=== PATIENT | female | born 1990 | race American Indian/Alaskan Native ===

== ENCOUNTER 2018-08-24 17:47 | Outpatient (CLI) | payer OTHER ==
[2018-08-24 18:20] VITALS: BP 107/74
[2018-08-24 18:57] LABS: Bacteria,Urine 1+ /HPF (Negative); Bilirubin,Urine NEG (Negative); Blood,Urine SM (Negative); Color,Urine Yellow (Yellow); Mucus,Urine FEW /HPF; Protein,Urine <15 mg/dL mg/dL (Negative); Urobilinogen,Urine < 2.0 mg/dL (<2.0)
[2018-08-24] MEDS ORDERED: LACTATED RINGERS 1,000 ML IV SCH (19:00)
[2018-08-24] MEDS ORDERED: BRETHINE SUB-Q SCH (21:00)
== END 2018-08-24 21:57 | disposition home or self-care (01) ==
LOC: TRG 17:47
PROVIDERS: ATTEND Obstetrics & Gynecology
DX: O26.893 Other specified pregnancy related conditions, third trimester (principal); R10.30 Lower abdominal pain, unspecified; O47.03 False labor before 37 completed weeks of gestation, third trimester; O09.213 Supervision of pregnancy with history of pre-term labor, third trimester; O13.3 Gestational [pregnancy-induced] hypertension without significant proteinuria, third trimester; O24.419 Gestational diabetes mellitus in pregnancy, unspecified control; Z3A.28 28 weeks gestation of pregnancy
CPT/HCPCS: 59025; 81001; 96360; 96361; 96372; J3105; J7120

== ENCOUNTER 2018-10-21 18:18 | Observation (INO) | payer OTHER ==
--- NOTE | 2018-10-21 19:26 | Event Note ---
Date: 10/21/18 Spec exam shows no pooling of fluid. nitrazine negative. SVE FT/60/-2. Irregular contractions palpating moderate. Cat 1 FHTs, reactive. VSSAF. pt reports being very active today, not hydrating. Will start IV and fluid bolus and recheck SVE in 1-2 hrs.
[2018-10-21] MEDS ORDERED: LACTATED RINGERS 500 ML IV ONE (19:29)
[2018-10-21] MEDS ORDERED: LACTATED RINGERS 1,000 ML ONE (19:30)
[2018-10-21] MEDS ORDERED: TYLENOL PO PRN (22:06)
[2018-10-21] MEDS ORDERED: VISTARIL PO PRN (22:10)
--- NOTE | 2018-10-21 22:22 | History and Physical Report ---
History of Present Illness Date of examination: 10/21/18 Date of admission: 10/21/2018 Chief complaint: contractions History of present illness: Pt reports contractions have been coming and going all day, continually getting stronger and closer since 5 pm today. 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 yes EDC Calculations LMP: 10/16/2019 EDC Confirmation: 11/16/2018 Gestational Age: 8 weeks Past History : 3 Para: 1 Prev : 1 # 1 Delivery date: 2006 Weeks Gestation: 39 Delivery location: [facility] Infant Sex: Female weight: 6-11 Comments: IOL severe preeclampsia. 4th degree laceration # 2 Delivery date: 2010 Weeks Gestation: 39 Delivery location: [place] Sex: Female weight: 8-3 Comments: elective d/t 4th degree laceration, IUGR Past Medical History: Reviewed history from 12/04/2015 and no changes required: Anxiety Past Surgical History: Reviewed history from 12/04/2015 and no changes required: Abdominoplasty Breast Augmentation: Risk Factors: Counseled to quit/cut down: yes Previous Tobacco Use: Signed On 12/04/2015 Smoked Tobacco Use: Never smoker Drug use: no Previous Alcohol Use: Signed On 12/04/2015 Alcohol use: no Exercise: yes Times per week: 6 PAP Smear History: Date of Last PAP Smear: 12/04/2015 Past Medical History Abnormal PAP: negative Social Hx: Patient is Smoking History: Patient has never smoked. Infection History Hx of STD: none Personal hx. of genital herpes: no Partner hx. of genital herpes: no Varicella/Chicken Pox Status: Previous Disease TB Risk: no Genetic History Congenital Heart Defect: Mom: no Dad: no Farhat Disease: Mom: no Dad: no Thalassemia Mom: no Dad: no Neural Tube Defect Mom: no Dad: no Down's Syndrome Mom: no Dad: no Robert-Sachs Mom: no Dad: no Sickle Cell Disease/Trait Mom: no Dad: no Hemophilia Mom: no Dad: no Muscular Dystrophy Mom: no Dad: no Cystic Fibrosis Mom: no Dad: no [place] Chorea Mom: no Dad: no Mental Retardation Mom: no Dad: no Fragile X Mom: no Dad: no Other Genetic/Chromosomal Disorder Mom: no Dad: no Child w/other defect Mom: no Dad: no Enviromental Exposures Enviromental Exposures Reviewed Xray Exposure: no Medication, drug, or alcohol use since LMP: no Chemical/Other Exposure: no Exposure to Cat Liter: no Hx of Parvovirus (Fifth Disease): no Occupational Exposure to Children: none Comments: Ethnicity: Presybeterian: 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) Family/Genetic History: other (see HPI) Social history: other (see HPI) - Obstetrical History : 3 Para: 2 Medications and Allergies Allergies Allergy/AdvReac Type Severity Reaction Status Date / Time No Known Allergies Allergy Verified 08/24/18 18:11 Active Meds: Active Medications Acetaminophen (Tylenol) 650 mg PO Q4H PRN PRN Reason: Pain MILD(1-3)/Fever >100.5/BAY Hydroxyzine Pamoate (Vistaril) 50 mg PO Q6H PRN PRN Reason: Anxiety Lactated Ringer's (Lactated Ringers) 1,000 mls @ 125 mls/hr IV DIRECT CASPER Review of Systems All systems: negative Genitourinary: contractions - Vital Signs Vital signs: Vital Signs Temp Pulse Resp BP 98.0 F 107 H 18 114/71 10/21/18 18:46 10/21/18 18:46 10/21/18 18:46 10/21/18 18:46 Temp Pulse Resp BP Pulse Ox 98.0 F 107 H 18 114/71 10/21/18 18:46 10/21/18 19:43 10/21/18 18:46 10/21/18 19:43 - Physical Exam Breasts: Cardiovascular: Regular rate, Normal S1, Normal S2 Lungs: Positive: Clear to auscultation, Normal air movement Abdomen: Positive: normal appearance, soft, normal bowel sounds. Negative: distention, tenderness Genitourinary (Female): Positive: normal external genitalia, normal perenium Vulva: both: normal Vagina: Positive: normal moisture. Negative: discharge Cervix: Negative: lesion, discharge Uterus: Positive: normal size, normal contour Adnexa: both: normal Anus/Rectum: Positive: normal perianal skin, heme negative. Negative: rectal mass, hemorrhoids Extremities: Positive: normal Deep Tendon Reflex Grade: Normal +2 - Obstetrical FHR: auscultation normal, category 1 Uterine Contraction Monitor Mode: External Cervical Dilatation: 1.5 (unable to reach inner os d/t pt discomfort and anxiety) Cervical Effacement Percentage: 60 station: -2 Uterine Contraction Frequency (min): 3-12 Uterine Contraction Pattern: Irregular Uterine Tone Measurement Phase: Contraction Uterine Contraction Intensity: Moderate Results Result Diagrams: 10/21/18 23:05 All other labs normal. Assessment and Plan Patient reports contractions "felt better and spaced out" with LR bolus, but since completion of bolus, ctx are now "getting stronger and closer again". SVE on arrival was FT/50/-2, now outer os is 1.5/50/-2 although [facility] is changed from prior exam d/t pt severe anxiety with any touch or examinations-pt unable to relax legs and is asking to stop exam, so I complied. Small amount of red blood noted on glove after examination. Contractions are now irregular, q4-12 minutes with irritability noted, still palpating moderate. pt rates pain 6/10 with contractions, 0 between contractions. Resting tone between contractions noted, abdomen is soft and non tender. DWP administration of terbutaline on arrival for comfort measures. She reported "not liking the way that made me feel and my heart racing with my anxiety" last time she received it and declined at the time. She is now accepting to receive the medication, but HR is 114 at current, will continue to monitor vs. Discussed pt c/o and assessment with Dr. Lawson. Will plan to admit for observation at this time, continue IV fluids, vistaril and tylenol ordered. See EMR. GBS is negative. Will continue to monitor for cervical change. Plan to reassess in AM or sooner if warranted. Pt aware to notify providers of any continued VB or any other changes in assessment.
[2018-10-21 22:25] LABS: Bacteria,Urine 1+ /HPF (Negative); Bilirubin,Urine NEG (Negative); Blood,Urine SM (Negative); Color,Urine Straw (Yellow); Protein,Urine <15 mg/dL mg/dL (Negative); Urobilinogen,Urine < 2.0 mg/dL (<2.0); WBC,Urine < 1.0 /HPF (0.0-6.0)
[2018-10-21 23:26] LABS: Basophils % (Auto) 0.3 % (0.0-1.8); Eosinophils # (Auto) 0.1 K/mm3 (0.0-0.4); Eosinophils % (Auto) 0.9 % (0.0-4.3); Hematocrit 34.5 % (30.3-42.9); Lymphocytes # (Auto) 1.4 K/mm3 (1.2-5.4); Lymphocytes % (Auto) 17.2 % (13.4-35.0); Mean Corpuscular HGB Conc 35 % (30-34); Mean Corpuscular Volume 88 fl (79-97); Monocytes # (Auto) 0.7 K/mm3 (0.0-0.8); Monocytes % (Auto) 8.3 % (0.0-7.3); Platelet Count 182 K/mm3 (140-440); Red Blood Count 3.91 M/mm3 (3.65-5.03); Red Cell Distribution Width 13.1 % (13.2-15.2)
--- NOTE | 2018-10-22 04:35 | Event Note ---
Date: 10/22/18 Call from RN approx 0215 to report pt is having irregular "runs of contractions every 3-4 minutes, but periods of longer spaces at times too". She reports patient has received vistaril, says pt reports "they are still painful" but that she is resting and does not appear to be in any distress or discomfort. Will continue to monitor at this time, RN to call within an hour if ctx appear to be progressing. Called RN to check status of pt at 0345, she reports that the contractions have spaced out, patient is resting without complaints. She calls back shortly after to report that patient has called out stating contractions are now very strong and painful again. SVE per RN is 1/50/-3, small amount of brown blood noted on exam glove. Will continue current POC and monitoring.
--- NOTE | 2018-10-22 05:42 | Progress Note ---
Assessment and Plan - Patient Problems (1) 36 weeks gestation of Onset Date: ~10/22/18 Current Visit: Yes Status: Acute Plan to address problem: Pt alert resting C/O being dizzy pt states it started after receiving Vistaril. Also states ctx have decreased in freq and intensity. Cat 1 tracing VSS CTX Q 12-15min with runs of Q5-8, 45sec,mild IUP @ 36w with ctx P: continue IVFs for now When pt is no longer dizzy from medication will allow breakfast and AM care. Will reassess after. Subjective - Subjective Date of service: 10/22/18 (pt resting quietly) Principal diagnosis: IUP@36w3d with ctx Patient reports: movement normal, other (pt c/o being dizzy Pt contributes it to the Vistaril) Objective - Vital Signs Vital Signs: Vital Signs - 12hr 10/21/18 10/21/18 10/21/18 18:46 19:43 22:26 Temperature 98.0 F Pulse Rate 107 H 107 H 110 H Respiratory 18 Rate Blood Pressure 114/71 104/56 Blood Pressure 114/71 [Left] - Exam Breasts: deferred Cardiovascular: Regular rate Lungs: Normal air movement Abdomen: Present: normal appearance, soft. Absent: distention, tenderness Vulva: both: normal Uterus: Present: normal FHR: auscultation normal, category 1 Uterine Contraction Monitor Mode: External Cervical Dilatation: 1 (CN had checked pt @ 0400) Cervical Effacement Percentage: 50 station: -3 Uterine Contraction Pattern: Irregular (pt states ctx have spaced out and are not as strong) Uterine Tone Measurement Phase: Resting Uterine Contraction Intensity: Mild Extremities: normal Deep Tendon Reflex Grade: Normal +2 - Labs Labs: Abnormal Labs 10/21/18 23:05 MCHC 35 H RDW 13.1 L Jefferson % (Auto) 8.3 H Seg Neutrophils % 73.3 H Laboratory Results - last 24 hr 10/21/18 10/21/18 10/21/18 21:25 23:05 23:05 WBC 8.1 RBC 3.91 Hgb 12.0 Hct 34.5 MCV 88 MCH 31 MCHC 35 H RDW 13.1 L Plt Count 182 Lymph % (Auto) 17.2 Jefferson % (Auto) 8.3 H Eos % (Auto) 0.9 Baso % (Auto) 0.3 Lymph # 1.4 Jefferson # 0.7 Eos # 0.1 Baso # 0.0 Seg Neutrophils % 73.3 H Seg Neutrophils # 6.0 Urine Color Straw Urine Turbidity Clear Urine pH 7.0 Ur Specific Smyer 1.003 Urine Protein <15 mg/dl Urine Glucose (UA) Neg Urine Ketones Neg Urine Blood Sm Urine Nitrite Neg Urine Bilirubin Neg Urine Urobilinogen < 2.0 Ur Leukocyte Esterase Neg Urine WBC (Auto) < 1.0 Urine RBC (Auto) 1.0 U Epithel Cells (Auto) 1.0 Urine Bacteria (Auto) 1+ Blood Type A POSITIVE Antibody Screen Negative
[2018-10-22] MEDS: CELESTONE SOLUSPAN IM SCH (09:25)
[2018-10-22] MEDS: TYLENOL PO SCH ×2 (11:00→17:11)
[2018-10-22] MEDS: LACTATED RINGERS 1,000 ML IV SCH (16:30)
--- NOTE | 2018-10-22 18:14 | Event Note ---
<DUANE LANDERS - Last Filed: 10/22/18 18:10> Date: 10/22/18 (Pt sitting on side of bed; "I want to eat.") Ctx continue minimal intensity, irregular. Cat 1 tracing. will go and get dinner for pt. Discussed with pt as long as ctx remain irregular will plan to give second dose of BMZ in the AM and re-eval in the AM. All questions addressed. to be over to see pt. <RAMÍREZ POWERS - Last Filed: 10/22/18 19:18> Patient resting in bed with family present.Still complains of contractions, irregularly. FHT's cat 1, Contractions irregular. Will complete steroid dose and observe, possibly allow home after dose if stable vs proceeding with delivery if labor or any other obstetric indications. Patient voiced understanding and agrees with plan of care
[2018-10-22] MEDS ORDERED: BENADRYL PO NR (21:00)
[2018-10-22] MEDS ORDERED: PEPCID IV SCH (21:00)
[2018-10-23] MEDS: LACTATED RINGERS 1,000 ML IV SCH (00:55)
[2018-10-23 07:43] VITALS: BP 105/69
--- NOTE | 2018-10-23 08:12 | Progress Note ---
Assessment and Plan 36.4 week IUP prior c/s here for ptl and BMZ. Pt resting in bed, reports feeling well, denies any complaints other than "this bed is very uncomfortable and I would like to either go home or have my baby". Patient reports contractions have "dies down". She report feeling none at all throughout the night. Since waking, 1-2 per hour, mild. She denies any VB or LOF. +FM. VSSAF. 2nd dose of BMZ due at 0930. Patient requests SVE not be done again d/t it being very painful and causing more contractions to follow. Last SVE was yesterday at 0400, /3. Will reassess pt status after BMZ given and if she remains stable condition will likely plan to d/c home at that time. Will consult with Dr. Lawson and update RN after BMZ completion. Subjective - Subjective Date of service: 10/23/18 Principal diagnosis: IUP@36w4d with ctx Interval history: Pt reports contractions have been coming and going all day, continually getting stronger and closer since 5 pm today. 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 yes EDC Calculations LMP: 10/16/2019 EDC Confirmation: 11/16/2018 Gestational Age: 8 weeks Past History : 3 Para: 1 Prev : 1 # 1 Delivery date: 2006 Weeks Gestation: 39 Delivery [facility]: [facility] Infant Sex: Female weight: 6-11 Comments: IOL severe preeclampsia. 4th degree laceration # 2 Delivery date: 2011 Weeks Gestation: 39 Delivery location: [place] Infant Sex: Female weight: 8-3 Comments: elective d/t 4th degree laceration, IUGR Past Medical History: Reviewed history from 12/04/2015 and no changes required: Anxiety Past Surgical History: Reviewed history from 12/04/2015 and no changes required: Abdominoplasty Breast Augmentation: Risk Factors: Counseled to quit/cut down: yes Previous Tobacco Use: Signed On 12/04/2015 Smoked Tobacco Use: Never smoker Drug use: no Previous Alcohol Use: Signed On 12/04/2015 Alcohol use: no Exercise: yes Times per week: 6 PAP Smear History: Date of Last PAP Smear: 12/04/2015 Past Medical History Abnormal PAP: negative Social Hx: Patient is Smoking History: Patient has never smoked. Infection History Hx of STD: none Personal hx. of genital herpes: no Partner hx. of genital herpes: no Varicella/Chicken Pox Status: Previous Disease TB Risk: no Genetic History Congenital Heart Defect: Mom: no Dad: no Farhat Disease: Mom: no Dad: no Thalassemia Mom: no Dad: no Neural Tube Defect Mom: no Dad: no Down's Syndrome Mom: no Dad: no Robert-Sachs Mom: no Dad: no Sickle Cell Disease/Trait Mom: no Dad: no Hemophilia Mom: no Dad: no Muscular Dystrophy Mom: no Dad: no Cystic Fibrosis Mom: no Dad: no [place] Chorea Mom: no Dad: no Mental Retardation Mom: no Dad: no Fragile X Mom: no Dad: no Other Genetic/Chromosomal Disorder Mom: no Dad: no Child w/other defect Mom: no Dad: no Enviromental Exposures Enviromental Exposures Reviewed Xray Exposure: no Medication, drug, or alcohol use since LMP: no Chemical/Other Exposure: no Exposure to Cat Liter: no Hx of Parvovirus (Fifth Disease): no Occupational Exposure to Children: none Comments: Ethnicity: 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 Father of baby: Roverto Howard FOB contact #: [phone] Current Allergies (reviewed today): No known allergies Patient reports: movement normal, contractions ("occasionally, a couple per hour, if that"), no new complaints, no loss of fluid, no vaginal bleeding Objective - Vital Signs Vital Signs: Vital Signs - 12hr 10/22/18 10/22/18 10/22/18 20:11 20:15 20:16 Temperature 98.2 F Pulse Rate 127 H 120 H 125 H Respiratory 16 Rate Blood Pressure 115/67 Blood Pressure 115/67 [Left] O2 Sat by Pulse 97 97 97 Oximetry 10/23/18 10/23/18 07:40 07:42 Temperature 98.0 F Pulse Rate 101 H 110 H Respiratory 16 Rate Blood Pressure 105/59 Blood Pressure 105/69 [Left] O2 Sat by Pulse 96 96 Oximetry - Exam Cardiovascular: Regular rate, Normal S1, Normal S2 Lungs: Clear to auscultation, Normal air movement Abdomen: Present: normal appearance, soft, normal bowel sounds. Absent: distention, tenderness Uterus: Present: normal, fundal height above umbilicus. Absent: tenderness FHR: auscultation normal, category 1 Uterine Contraction Monitor Mode: External Uterine Contraction Pattern: Absent Extremities: edema (mile to LE bilat. non pitting. SCDs in place) Deep Tendon Reflex Grade: Normal +2 - Labs Labs: Abnormal Labs 10/21/18 23:05 MCHC 35 H RDW 13.1 L Dukes % (Auto) 8.3 H Seg Neutrophils % 73.3 H
[2018-10-23] MEDS: CELESTONE SOLUSPAN IM SCH (09:46)
--- NOTE | 2018-10-23 10:16 | Discharge Summary ---
Providers - Providers Date of Admission: 10/21/18 22:36 Date of discharge: 10/23/18 (cleared by Dr. Ronquillo) Attending physician: SOPHIE RONQUILLO Primary care physician: SOPHIE RONQUILLO Hospitalization Reason for admission: contractions. BMZ series Hospital course: uneventful Disposition: DC-01 TO HOME OR SELFCARE Core Measure Documentation - Palliative Care Palliative Care/ Comfort Measures: Not Applicable - Core Measures Any of the following diagnoses?: none Exam - Constitutional Vitals: Temp Pulse Resp BP Pulse Ox 98.0 F 110 H 16 105/59 96 10/23/18 07:40 10/23/18 07:42 10/23/18 07:40 10/23/18 07:42 10/23/18 07:42 General appearance: Present: no acute distress, well-nourished - EENT Eyes: Present: PERRL ENT: hearing intact, clear oral mucosa - Neck Neck: Present: supple, normal ROM - Respiratory Respiratory effort: normal Respiratory: bilateral: CTA - Cardiovascular Heart Sounds: Present: S1 & S2. Absent: rub, click - Extremities Extremities: pulses symmetrical Extremity abnormal: edema (mild bilat LEs non pitting) Peripheral Pulses: within normal limits - Abdominal General gastrointestinal: Present: soft, non-tender, non-distended, normal bowel sounds Female genitourinary: Present: normal - Integumentary Integumentary: Present: clear, warm, dry - Musculoskeletal Musculoskeletal: gait normal, strength equal bilaterally - Psychiatric Psychiatric: appropriate mood/affect, intact judgment & insight - Neurologic Neurologic: CNII-XII intact, moves all extremities Plan Activity: no restrictions Diet: regular Follow up with: FAUSTO HERNANDEZ CNM [Advanced Practice Nurse] - 10/27/18 (Keep scheduled appointment on 10/27/2018. Call sooner with any signs of labor or any other questions or concerns. )
== END 2018-10-23 10:30 | disposition home or self-care (01) ==
LOC: TRG 18:18 → LD 22:36 → TRG 22:36
PROVIDERS: ADMIT Obstetrics & Gynecology; ATTEND Obstetrics & Gynecology
DX: O62.9 Abnormality of forces of labor, unspecified (principal); O26.893 Other specified pregnancy related conditions, third trimester; R42 Dizziness and giddiness; Z3A.36 36 weeks gestation of pregnancy
CPT/HCPCS: 36415; 81001; 85025; 86850; 86900; 86901; 96361; 96372; 96374; G0378; J0702; J7120; Q0177

== ENCOUNTER 2018-11-09 07:05 | Inpatient (IN) | payer OTHER ==
--- NOTE | 2018-11-03 15:31 | History and Physical Report ---
History of Present Illness Date of examination: 11/03/18 History of present illness: Patient admitted for repeat section. Patient informed the risks of the surgery include bleeding possibly bleeding heavy enough to require blood transfusion, infection possible damage to bowel bladder ureter. Patient understands that due to her previous surgery she is an increased risks of adjacent organ damage. Patient's questions answered. Patient understands and desires to proceed. 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 yes EDC Calculations EDC Confirmation: 11/16/2018 Past History : 3 Para: 2 Prev : 1 # 1 Delivery date: 2006 Weeks Gestation: 39 Delivery location: [facility] Infant Sex: Female weight: 6-11 Comments: IOL severe preeclampsia. 4th degree laceration # 2 Delivery date: 2010 Weeks Gestation: 39 Delivery location: [place] Infant Sex: Female weight: 8-3 Comments: elective d/t 4th degree laceration, IUGR Past Medical History: Anxiety Past Surgical History: Abdominoplasty Breast Augmentation: Risk Factors: Smoked Tobacco Use: Never smoker Drug use: no Alcohol use: no Exercise: yes Times per week: 6 PAP Smear History: Date of Last PAP Smear: 12/04/2015 Past Medical History Abnormal PAP: negative Social Hx: Patient is Smoking History: Patient has never smoked. Infection History Hx of STD: none Personal hx. of genital herpes: no Partner hx. of genital herpes: no Varicella/Chicken Pox Status: Previous Disease TB Risk: no Genetic History Congenital Heart Defect: Mom: no Dad: no Farhat Disease: Mom: no Dad: no Thalassemia Mom: no Dad: no Neural Tube Defect Mom: no Dad: no Down's Syndrome Mom: no Dad: no Robert-Sachs Mom: no Dad: no Sickle Cell Disease/Trait Mom: no Dad: no Hemophilia Mom: no Dad: no Muscular Dystrophy Mom: no Dad: no Cystic Fibrosis Mom: no Dad: no Maynard Chorea Mom: no Dad: no Mental Retardation Mom: no Dad: no Fragile X Mom: no Dad: no Other Genetic/Chromosomal Disorder Mom: no Dad: no Child w/other defect Mom: no Dad: no Enviromental Exposures Enviromental Exposures Reviewed Xray Exposure: no Medication, drug, or alcohol use since LMP: no Chemical/Other Exposure: no Exposure to Cat Liter: no Hx of Parvovirus (Fifth Disease): no Occupational Exposure to Children: none Comments: Ethnicity: Islam: 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) Family/Genetic History: other (SEE HPI) Social history: full code, other (SEE HPI) - Obstetrical History Expected Date of Delivery: 11/16/18 Actual Gestation: 39 Week(s) 0 Day(s) : 3 Para: 2 Hx # Term Pregnancies: 2 Number of Pregnancies: 0 Spontaneous Abortions: 0 Induced : 0 Number of Living Children: 2 Medications and Allergies Allergies Allergy/AdvReac Type Severity Reaction Status Date / Time No Known Allergies Allergy Verified 08/24/18 18:11 - Physical Exam Breasts: Positive: deferred Cardiovascular: Regular rate Lungs: Positive: Normal air movement Abdomen: Positive: normal appearance Genitourinary (Female): Positive: normal external genitalia Vagina: Positive: normal moisture - Obstetrical FHR: auscultation normal Uterine Contraction Pattern: Absent Results Result Diagrams: 11/09/18 05:30 All other labs normal. Assessment and Plan - Patient Problems (1) Maternal care due to uterine scar from previous surgery Current Visit: Yes Status: Acute Qualifiers: Previous surgery type: uterine scar from previous delivery Previous delivery type: low transverse Qualified Code(s): O34.211 - Maternal care for low transverse scar from previous delivery Plan to address problem: Discuss the risks of the surgery including infection, bleeding possibly heavy enough to require a blood transfusion, possible damage to bowel, bladder or ureter. Patient understands her risks of adjacent organ damage is increased due to her previous surgery(ies) Her questions were answered. Patient understands and desires to proceed Sterilization (ICD-V25.2) ([id number]) (2) Encounter for sterilization Current Visit: Yes Status: Acute Plan to address problem: Patient desires sterilization. Patient declined temporary contraceptives. Discuss the permanency of sterilization. High risk of regret and 0.5 to 1% risk of failure. Questions answered Patient understands and desires to proceed. (3) Anxiety Current Visit: Yes Status: Chronic (4) 39 weeks gestation of Current Visit: Yes Status: Acute
[~2018-11-09 07:05] MED LIST: BICITRA ORAL LIQD 30ML PO NR; FAMOTIDINE 20 MG/2 ML INJ IV NR; LACTATED RINGERS 1,000 ML IV SCH; METOCLOPRAMIDE 10 MG/2 ML INJ IV NR; OXYTOCIN 20 UNIT/1000ML DRIP 20 UNITS/1,000 ML BAG IV SCH; ceFAZolin/Water 2 GM/20 ML 2 GM/20 ML SYRINGE IV NR
[2018-11-09] MEDS ORDERED: DEXMEDETOMIDINE 200 MCG/2 ML VIAL IV ONE (07:11)
[2018-11-09] MEDS ORDERED: ONDANSETRON 4 MG/2 ML INJ ONE (07:11)
[2018-11-09] MEDS ORDERED: HYDROmorphone 1 MG/1 ML INJ IV PRN ×2 (07:28→08:00)
--- NOTE | 2018-11-09 07:28 | Anesthesia Consultation ---
Anesthesia Consult and Med Hx Date of service: 11/09/18 - Airway Anesthetic Teeth Evaluation: Good ROM Head & Neck: Adequate Mental/Hyoid Distance: Adequate Mallampati Class: Class II Intubation Access Assessment: Good - Pulmonary Exam CTA: Yes - Cardiac Exam Cardiac Exam: RRR - Pre-Operative Health Status ASA Pre-Surgery Classification: ASA1 Proposed Anesthetic Plan: Spinal - Pulmonary Hx Asthma: No COPD: No Hx Pneumonia: No - Cardiovascular System Hx Hypertension: No - Central Nervous System Hx Seizures: No Hx Psychiatric Problems: No - Endocrine Hx Renal Disease: No Hx End Stage Renal Disease: No Hx Hypothyroidism: No Hx Hyperthyroidism: No - Hematic Hx Anemia: No Hx Sickle Cell Disease: No - Other Systems Hx Alcohol Use: No
[2018-11-09] MEDS ORDERED: WATER FOR IRRIG STERILE 1,500 ML BOTTLE IR ONE (07:35)
[2018-11-09] MEDS ORDERED: SODIUM CHLORIDE 0.9% IRR 1,500 ML BOTTLE IR ONE (07:35)
[2018-11-09] MEDS ORDERED: ePHEDrine SULFATE 50 MG/1 ML INJ ONE (07:41)
[2018-11-09] MEDS ORDERED: PHENYLEPHRINE 10 MG/1 ML INJ SDV ONE (07:47)
[2018-11-09] MEDS ORDERED: fentaNYL-BUPIV 2 MCG/ML-0.125% 200 MCG/100 ML BAG EPIDURAL SCH (08:00)
[2018-11-09] MEDS ORDERED: ONDANSETRON 4 MG/2 ML INJ IV PRN (08:00)
[2018-11-09] MEDS ORDERED: NALOXONE 0.4 MG/1 ML INJ IV PRN ×2 (08:00→13:35)
[2018-11-09] MEDS ORDERED: PROMETHAZINE 25 MG TAB PO PRN (08:00)
[2018-11-09] MEDS ORDERED: PROMETHAZINE 25 MG RECT SUPP PR PRN (08:00)
[2018-11-09] MEDS ORDERED: HYDROmorphone 1 MG/1 ML INJ ONE (08:10)
[2018-11-09] MEDS ORDERED: KETOROLAC 30 MG/1 ML INJ ONE (08:10)
[2018-11-09] MEDS ORDERED: diphenhydrAMINE 50 MG/ML VIAL ONE (08:10)
[2018-11-09 08:23] LABS: Hematocrit 40.2 % (30.3-42.9); Hemoglobin 13.8 gm/dl (10.1-14.3); Mean Corpuscular Volume 89 fl (79-97); Red Blood Count 4.54 M/mm3 (3.65-5.03)
[2018-11-09 08:24] LABS: Lymphocytes % (Auto) 18.4 % (13.4-35.0); Mean Corpuscular HGB Conc 34 % (30-34); Platelet Count 174 K/mm3 (140-440)
[2018-11-09 08:28] LABS: Basophils % (Auto) 0.3 % (0.0-1.8); Eosinophils # (Auto) 0.1 K/mm3 (0.0-0.4); Eosinophils % (Auto) 0.8 % (0.0-4.3); Lymphocytes # (Auto) 1.4 K/mm3 (1.2-5.4); Monocytes # (Auto) 0.5 K/mm3 (0.0-0.8); Monocytes % (Auto) 6.6 % (0.0-7.3)
--- NOTE | 2018-11-09 09:01 | Anesthesia Day of Surgery ---
Anesthesia Day of Surgery - Day of Surgery Patient Examined: Yes Patient H&P Reviewed: Yes Patient is NPO: Yes
--- NOTE | 2018-11-09 09:02 | Post Anesthesia Evaluation ---
- Post Anesthesia Evaluation Patient Participated: Yes Airway Patent: Yes Stable Respiratory Function: Yes Nausea/Vomiting: No Temp > 96.8F: Yes Pain Manageable: Yes Adequeate Hydration: Yes Anesthesia Complications: No Block Receding Appropriately: Yes Patient on Ventilator: No
--- NOTE | 2018-11-09 09:09 | Operative Report ---
Operative Report Operative Report: Date of procedure:11/09/2018 Pre-operative diagnosis: Intrauterine at 39 weeks with previous section and desires permanent sterilization Post-operative diagnosis: Same Procedure name(s): Repeat low transverse section with bilateral salpingectomy Surgeon: Niall Chao MD Toggler: Pham Carvalho, certified nurse shrub grower Anesthesia: Spinal EBL: 700 mL Complications: None Findings: Patient with normal uterus tubes and ovaries bilaterally. Male weight 8 lbs. 3 oz. Apgars 8 at 1 minute and 9 at 5 minutes Specimen(s): Bilateral fallopian tubes Procedure: The patient was brought to the operating room. A spinal was placed without any complications. She was then placed in left lateral tilt. Prepped and draped in the usual sterile manner. After testing for adequate anesthesia level, a Pfannenstiel incision was made through her previous scar. This incision was taken down to the fascia. The fascia was then nicked in the midline. This incision was extended out laterally with Roman scissors. The fascia was then sharply and bluntly from the underlying rectus muscles. The rectus muscles were bluntly and sharply . The peritoneum was then entered with the linotype operator's fingers. This incision was spread vertically with care not to damage the bladder below. Bladder blade was placed. The bladder flap was then formed sharply and bluntly with Metzenbaum scissors. A transverse incision was made in lower uterine segment. This incision was extended laterally with the operators fingers. The amniotic sac was then entered bluntly with the linotype operator's fingers. The was delivered from the vertex position. Bulb suction on the mother's abdomen. Cord was double clamped and cut. The was then passed to the nursery personnel who were in attendance. The above scores were given by the nursery personnel. The placenta was then bluntly removed. The uterus was then externalized and wiped clean the remaining products. The uterine incision was closed in layers. The first incision was closed in a locking manner using 0 Vicryl. This was followed by imbricating stitch also with 0 Vicryl. Attention was then switched to the patient's fallopian tubes. Each fallopian tube was identified by its fimbriated end. Starting with the patient's right tube, the tube was grasped with Babcocks. At approximately 2-3 cm from the cornea, the tube was transected with Bovie. The mesial salpinx under the tube was cauterized distally toward the fimbriated end. The salpingectomy was then completed and the tube was passed off the field. The remaining mesosalpinx was cauterized with good hemostasis. The same procedure was performed the patient's left fallopian tube with good hemostasis. Attention was then switched back to the uterine closure. This closure was hemostatic at the additional [id number] sutures. The bladder flap was copiously irrigated and found to be hemostatic. The pelvis was copiously irrigated and found to be hemostatic. Hemoblast was placed along the uterine closure and bilaterally on the mesial salpinx. The uterus was then placed back to the patient's abdomen. The retractors were removed. The rectus muscles were inspected and found to be hemostatic. The fascia was then closed in a running manner using 0 Vicryl. This incision was hemostatic irrigation Bovie. The skin was reapproximated with 4-0 Vicryl subcuticularly. The patient tolerated procedure well. Her urine was clear. The was admitted to the [facility] baby nursery. The patient was accompanied to recovery room in good condition. Instrument count correct 3.
[2018-11-09] MEDS ORDERED: KETOROLAC 30 MG/1 ML INJ IV PRN (13:31)
[2018-11-09] MEDS ORDERED: OXYTOCIN 20 UNIT/1000ML DRIP 20 UNITS/1,000 ML BAG IV SCH (13:35)
[2018-11-09] MEDS ORDERED: WITCH HAZEL/ GLYCERIN PAD TP PRN (13:35)
[2018-11-09] MEDS ORDERED: LANOLIN/ZINC/DIMETHICONE (LANSINOH) 7 GM TP PRN (13:35)
[2018-11-09] MEDS ORDERED: PRENATAL VIT27-FE FUMARATE-FOLIC ACID VIT TAB PO SCH (13:35)
[2018-11-09] MEDS ORDERED: MAGNESIUM HYDROXIDE (MOM) ORAL LIQD UDC PO PRN (13:35)
[2018-11-09] MEDS ORDERED: D5W/LACTATED RINGERS 1,000 ML IV SCH (13:35)
[2018-11-09] MEDS ORDERED: SIMETHICONE 80 MG CHEW TAB PO PRN (13:35)
[2018-11-09] MEDS: ceFAZolin/NS 1 GM/50 ML 1 GM/50 ML BAG IV SCH (16:30)
[2018-11-09] MEDS: HYDROcodone/ACETAMINOPHEN 5-325 MG TAB PO PRN ×2 (18:21→20:24)
[2018-11-09] MEDS: KETOROLAC 30 MG/1 ML INJ IV SCH (19:30)
[2018-11-09] MEDS: FERROUS SULFATE 325 MG TAB PO SCH (20:21)
[2018-11-09] MEDS: IBUPROFEN 800 MG TAB PO PRN (20:23)
[2018-11-09 20:57] LABS: Hematocrit 32.3 % (30.3-42.9); Hemoglobin 11.2 gm/dl (10.1-14.3)
[2018-11-10] MEDS: ceFAZolin/NS 1 GM/50 ML 1 GM/50 ML BAG IV SCH (00:53)
[2018-11-10] MEDS: HYDROcodone/ACETAMINOPHEN 5-325 MG TAB PO PRN ×4 (01:04→17:43)
[2018-11-10] MEDS: IBUPROFEN 800 MG TAB PO PRN (03:35)
--- NOTE | 2018-11-10 08:11 | Progress Note ---
Assessment and Plan patient reports pain medication is not holding her pain at reasonable level, will increase [place] from 1 tab to 2 tabs PO q6h to manage pain. VSSAF, Lochia scant, dressing D&I, infant. encouraged advancing activity and diet as tolerated. - Patient Problems (1) delivery delivered Current Visit: Yes Status: Acute Plan to address problem: continue postop pathway Subjective - Subjective Date of service: 11/10/18 Principal diagnosis: postop day #1 s/p repeat c/s with tubal Patient reports: appetite normal, voiding normally, flatus, pain poorly controlled, ambulating normally, no dizzy ambulation, no bowel movement, no nauseated [place]: doing well, nursing well Objective - Vital Signs Latest vital signs: Vital Signs Temp Pulse Resp BP BP Pulse Ox 11/10/18 04:54 18 11/10/18 03:35 18 11/10/18 01:04 18 11/10/18 00:00 98.7 F 60 18 111/62 11/09/18 20:24 18 11/09/18 20:23 18 11/09/18 20:00 98.7 F 72 18 102/59 11/09/18 16:01 98.5 F 86 20 102/61 98 11/09/18 11:46 98.1 F 104 H 20 100/58 98 11/09/18 10:21 98.2 F 88 16 106/64 98 11/09/18 09:45 97.6 F 90 18 106/59 100 11/09/18 09:30 83 17 118/64 100 11/09/18 09:15 83 14 123/60 100 11/09/18 09:05 87 13 108/62 100 11/09/18 09:00 84 11 L 119/59 100 11/09/18 08:55 88 12 119/44 100 11/09/18 08:50 97.8 F 88 12 116/73 100 Intake and Output 11/09/18 11/10/18 11/10/18 23:59 07:59 15:59 Intake Total 590 300 Output Total 1450 800 Balance -860 -500 Intake: IV 50 ANCEF/NS 1 GM/50 ML 1 gm 50 In 50 ml @ 100 mls/hr IV Q8H [facility] Rx#:[id number] Oral 240 Intake, Free Water 300 300 Output: Urine 1450 800 Indwelling 600 Indwelling Catheter 250 Void 600 800 Other: Total, Intake Amount 240 Total, Output Amount 600 800 # Voids Void 1 1 - Exam Breasts: Present: normal, Cardiovascular: Present: Regular rate Lungs: Present: Clear to auscultation, Normal air movement Abdomen: Present: normal appearance, soft. Absent: distention, tenderness, guarding Vulva: both: normal Uterus: Present: normal, firm, fundal height at umbilicus Extremities: Present: normal Deep Tendon Reflex Grade: Normal +2 Incision: Present: normal, dry, dressed - Labs Labs: Abnormal lab results 11/09/18 Range/Units 05:30 RDW 13.0 L (13.2-15.2) % Seg Neutrophils % 73.9 H (40.0-70.0) %
[2018-11-10] MEDS: FERROUS SULFATE 325 MG TAB PO SCH (09:42)
[2018-11-10] MEDS: KETOROLAC 30 MG/1 ML INJ IV SCH ×2 (13:35→21:12)
[2018-11-10] MEDS ORDERED: NEOMY 3.5 MG/BACIT 400 UNITS/POLY B 5000 UNITS/GM OINT PACKET TP SCH (20:00)
[2018-11-11] MEDS: HYDROcodone/ACETAMINOPHEN 5-325 MG TAB PO PRN (01:20)
[2018-11-11] MEDS: IBUPROFEN 800 MG TAB PO PRN (04:59)
[2018-11-11] MEDS ORDERED: TETANUS,DIPH,PERTUSS(ACELL) VACCINE 0.5 ML SYRINGE IM ONE (06:00)
--- NOTE | 2018-11-11 08:46 | Discharge Summary ---
Providers - Providers Date of Admission: 11/09/18 07:05 Date of discharge: 11/11/18 (patient desires discharge today) Attending physician: WILLIAMS MCCOY 11/09/18 13:35 Consult to Computational Physicist [CONS] Routine Reason For Exam: Primary care physician: SOPHIE RONQUILLO Hospitalization Reason for admission: scheduled repeat c/s with BTL Condition: Good Pertinent studies: post delivery H&H 11.2/32.3 Procedures: repeat c/s with BTL Hospital course: uncomplicated c/s with BTL and course Disposition: DC- TO HOME OR SELFCARE Core Measure Documentation - Palliative Care Palliative Care/ Comfort Measures: Not Applicable - Core Measures Any of the following diagnoses?: none Exam - Constitutional Vitals: Temp Pulse Resp BP Pulse Ox 98.4 F 70 18 105/76 98 11/11/18 00:00 11/11/18 00:00 11/11/18 00:00 11/11/18 00:00 11/10/18 16:52 General appearance: Present: no acute distress, well-nourished - EENT Eyes: Present: PERRL ENT: hearing intact, clear oral mucosa - Neck Neck: Present: supple, normal ROM - Respiratory Respiratory effort: normal Respiratory: bilateral: CTA - Cardiovascular Heart Sounds: Present: S1 & S2. Absent: rub, click - Extremities Extremities: pulses symmetrical, No edema Peripheral Pulses: within normal limits - Abdominal General gastrointestinal: Present: soft, non-tender, non-distended, normal bowel sounds Female genitourinary: Present: normal - Integumentary Integumentary: Present: clear, warm, dry - Musculoskeletal Musculoskeletal: gait normal, strength equal bilaterally - Psychiatric Psychiatric: appropriate mood/affect, intact judgment & insight - Neurologic Neurologic: CNII-XII intact, moves all extremities - Additional findings Additional findings: FF, ML, U/2. Vaginal bleeding is small, patient denies any heavy bleeding or clots. Incision is well approximated, healing well, no bleeding or drainage noted, no s/s infection. DWP proper care/hygiene for incision. Patient is nursing, reports it is going well, no breast complaints. Reviewed post delivery H&H with patient, she denies any dizziness or feeling faint with ambulation or position changes. She denies any BAY, Visual disturbances, SOB, chest pain, difficulty breathing, or any other complaints. Encouraged to continue frequent ambulation, increase water intake, use of IS. Patient desires discharge today, will f/u in 1 week for incision check and circumcision for son in office. Plan Activity: advance as tolerated Diet: regular Wound: open to air, keep clean and dry Care Plan Goals: Call office to schedule appointment Call your doctor immediately for: * Fever > 100.5 * Heavy vaginal bleeding ( >1 pad per hour) * Severe persistent headache * Shortness of breath * Reddened, hot, painful area to leg or breast * Drainage or odor from incision. * Keep incision clean and dry at all times and follow doctor's instructions regarding bathing/showering Follow up with: SOPHIE RONQUILLO MD [Primary Care Provider] - 7 Days (Congratulations! Please call [phone] to schedule your post-op incision check appointment in 1 week. Call to schedule your son's circumcision appointment. Bring EMLA cream with you to his appointment and await further instructions for use. Call with any questions or concerns. ) Forms: [facility] Discharge Summary Prescriptions: Docusate Sodium [Colace] 100 mg PO BID PRN #60 capsule PRN Reason: Constipation Lidocain2.5%/Prilocai2.5% [Emla] 5 gm TP ONCE #1 tube Ferrous Sulfate [Feosol 325 MG tab] 325 mg PO BID #60 tablet Ibuprofen [Motrin 800 MG tab] 800 mg PO Q6H PRN #30 tablet PRN Reason: Pain oxyCODONE /ACETAMINOPHEN [Percocet 5/325 mg] 1 - 2 tab PO Q4H PRN #20 tablet PRN Reason: Pain, Moderate
[2018-11-11 11:39] VITALS: BP 113/76
== END 2018-11-11 11:59 | disposition home or self-care (01) | DRG 785 ==
LOC: APU 07:05 → OB 10:30
PROVIDERS: ADMIT Obstetrics & Gynecology; ATTEND Obstetrics & Gynecology
PROC: 10D00Z1 Extraction of Products of Conception, Low, Open Approach (ICD-10-PCS; principal; 2018-11-09)
PROC: 0UT70ZZ Resection of Bilateral Fallopian Tubes, Open Approach (ICD-10-PCS; 2018-11-09)
PROC: 3E0234Z Introduction of Serum, Toxoid and Vaccine into Muscle, Percutaneous Approach (ICD-10-PCS; 2018-11-11)
DX: O34.211 Maternal care for low transverse scar from previous cesarean delivery (principal); O99.344 Other mental disorders complicating childbirth; F41.9 Anxiety disorder, unspecified; Z3A.39 39 weeks gestation of pregnancy; Z37.0 Single live birth; Z23 Encounter for immunization
CPT/HCPCS: 36415; 85014; 85018; 85025; 86850; 86900; 86901; 88302; 90471; 90715; G0378; A6250; J0690; J1170; J1200; J1885; J2370; J2405; J2590; J2765; J3490; J7120